=== PATIENT | male | born 1970 ===

== ENCOUNTER 2020-02-27 13:13 | Emergency (ER) | payer OTHER ==
[~2020-02-27] VITALS: Ht 162.6 cm; Wt 72.5 kg
--- NOTE | 2020-02-27 13:54 | NUR ---
PT TO ROOM FROM LOBBY
[2020-02-27] MEDS ORDERED: MORPHINE SULFATE 4 MG/ML, 1ML IVPush PRN (14:30)
[2020-02-27] MEDS ORDERED: SODIUM CHLORIDE 0.9% 1,000ML IVBOLUS ONE (14:30)
[2020-02-27] MEDS ORDERED: ONDANSETRON 2MG/ML, 2ML IVPush ONE (14:30)
--- NOTE | 2020-02-27 14:34 | NUR ---
THIS IS A 49 YEAR OLD MALE WHO C/O OF PT CAME IN CO RLQ ABD AND FLANK PAIN. "BS WAS 362 AT THIS MORNING" FSBG 330 IN TRIAGE. IV STARTED, PT TOLERATED WELL.
[2020-02-27] MEDS ORDERED: ONDANSETRON 2MG/ML, 2ML ONE (14:38)
[2020-02-27] MEDS ORDERED: MORPHINE SULFATE 4 MG/ML, 1ML ONE (14:38)
--- NOTE | 2020-02-27 14:57 | NUR ---
MEDICATED PATIENT PER MAR. DISCUSSED PLAN OF CARE WITH PT. CALL LIGHT WITHIN PLACE, NO ADDITIONAL NEEDS AT THIS TIME
[2020-02-27 15:04] LABS: BASOPHILS % (AUTO) 0 % (0-1); EOSINOPHILS % (AUTO) 1 % (1-7); LYMPHOCYTES % (AUTO) 11 % (22-44); MEAN CORPUSCULAR HEMOGLOBIN 30.3 pg (27.5-34.5); MEAN PLATELET VOLUME 9.9 fL (7.4-10.4); MONOCYTES % (AUTO) 7 % (2-9); NEUTROPHILS % (AUTO) 82 % (42-75); PLATELET COUNT 197 x10^3/uL (130-400); RED BLOOD COUNT 5.68 x10^6/uL (4.38-5.82); RED CELL DISTRIBUTION WIDTH 13.2 % (9.4-14.8)
[2020-02-27 15:18] LABS: ALANINE AMINOTRANSFERASE 45 U/L (12-78); ANION GAP 8 mmol/L (5-15); CALCIUM 8.8 mg/dL (8.5-10.1); CHLORIDE 103 mmol/L (98-107)
[2020-02-27 15:21] LABS: ALKALINE PHOSPHATASE 82 U/L (45-117); BILIRUBIN,TOTAL 0.6 mg/dL (0.2-1.0); TOTAL PROTEIN 7.7 g/dL (6.4-8.2)
[2020-02-27 15:51] LABS: MD SCAN
[2020-02-27 16:00] LABS: ACETONE, SERUM Negative (Negative)
[2020-02-27] MEDS ORDERED: KETOROLAC 30 MG/1 ML ONE (17:24)
[2020-02-27] MEDS ORDERED: KETOROLAC 30 MG/1 ML IVPush ONE (17:30)
--- NOTE | 2020-02-27 17:30 | NUR ---
MEDICATED PATIENT PER EMAR. PT RESTING COMFORTABLY, AT BEDSIDE. CALL LIGHT WITHIN REACH.
[2020-02-27 17:34] LABS: MICROSCOPIC AUTO
[2020-02-27 19:01] VITALS: BP 106/64
== END 2020-02-27 19:04 | disposition home or self-care (01) ==
LOC: EDSEX 13:13 → ED 17:11
DX: N20.1 Calculus of ureter (principal); R73.9 Hyperglycemia, unspecified
CPT/HCPCS: 36415; 74177; 80053; 81001; 82010; 82800; 82962; 83036; 83690; 85025; 96374; 96375; 99285; J1885; J2270; J2405; J7030